=== PATIENT | male | born 1975 | race Caucasian/White ===

== ENCOUNTER 2018-06-18 12:01 | Emergency (ER) | payer OTHER ==
[2018-06-18 12:06] VITALS: BP 140/94; PULSE 70; TEMP 98; BMI 28.8
--- NOTE | 2018-06-18 12:55 | PDOC ---
History of Present Illness - General Chief Complaint: Pain Stated Complaint: RT SHOULDER PAIN Time Seen by Provider: 06/18/18 12:44 - History of Present Illness Initial Comments: 06/18/18 12:51 43-year-old male with a history of reflux presents for evaluation of right shoulder pain after a traction type injury. He states he was climbing the ladder slipped off one of the steps and held on with his right upper extremity. Naprosyn planes of right shoulder pain. This happened earlier today. Past History - Past Medical History Allergies/Adverse Reactions: Allergies Allergy/AdvReac Type Severity Reaction Status Date / Time No Known Allergies Allergy Verified 06/18/18 12:03 Home Medications: Ambulatory Orders NK [No Known Home Medication] 01/05/15 COPD: No - Immunization History Immunization Up to Date: Yes - Suicide/Smoking/Psychosocial Hx Smoking Status: No Smoking History: Never smoked Number of Cigarettes Smoked Daily: 0 Hx Alcohol Use: No Drug/Substance Use Hx: No Review of Systems - Review of Systems Musculoskeletal: Yes: Joint Pain *Physical Exam - Vital Signs Last Vital Signs Temp Pulse Resp BP Pulse Ox 98.0 F 70 18 140/94 97 06/18/18 12:04 06/18/18 12:04 06/18/18 12:04 06/18/18 12:04 06/18/18 12:04 - Physical Exam Comments: 06/18/18 12:52 Right shoulder range of motion is full with mild discomfort at terminal abduction and external rotation internal rotation and adduction. 5 out of 5 strength in bilateral upper extremities including supraspinatus isolation. Mildly positive speeds and O'Neal status for the right shoulder. No tenderness over the biceps tendon. Negative Spurling maneuver no gross sensorimotor deficits. Is neurovascularly intact. Moderate Sedation - Procedure Monitoring Vital Signs: Procedure Monitoring Vital Signs Temperature 98.0 F 06/18/18 12:04 Pulse Rate 70 06/18/18 12:04 Respiratory Rate 18 06/18/18 12:04 Blood Pressure 140/94 06/18/18 12:04 O2 Sat by Pulse Oximetry (%) 97 06/18/18 12:04 Medical Decision Making - Medical Decision Making 06/18/18 12:53 I believe this of mild right shoulder strain. I'll give him a week off work and orthopedic follow-up with instructions to return to the emergency room should symptoms worsen. He does have a history of reflux and instructed him to avoid anti-inflammatories and stick with Tylenol for pain as directed for now. *DC/Admit/Observation/Transfer Diagnosis at time of Disposition: Right shoulder strain - Discharge Dispostion Disposition: HOME Condition at time of disposition: Stable Decision to Admit order: No - Referrals Referrals: Samir Page DO [Staff Physician] - - Patient Instructions Printed Discharge Instructions: DI for Muscle Strain Additional Instructions: Return to the emergency room for worsening symptoms. Please follow-up with orthopedic surgery in 1-2 days for further evaluation and treatment options. Tylenol as directed for pain. Avoid anti-inflammatories as discussed. - Post Discharge Activity Forms/Work/School Notes: Back to Work
== END 2018-06-18 12:58 | disposition home or self-care (01) ==
LOC: JERFT 12:01
DX: S46.811A Strain of other muscles, fascia and tendons at shoulder and upper arm level, right arm, initial encounter (principal); W11.XXXA Fall on and from ladder, initial encounter; Y93.89 Activity, other specified; Y92.89 Other specified places as the place of occurrence of the external cause; Y99.0 Civilian activity done for income or pay
CPT/HCPCS: 99281-25

== ENCOUNTER 2019-06-22 08:17 | Emergency (ER) | payer OTHER ==
[2019-06-22 08:22] VITALS: BP 117/73; PULSE 78; TEMP 97.9; BMI 29.0
[2019-06-22] MEDS ORDERED: KETOROLAC TROMETHAMINE 60 MG/2 ML VIAL IM ONE (09:00)
[2019-06-22] MEDS ORDERED: KETOROLAC TROMETHAMINE 30 MG/1 ML VIAL ONE (09:02)
--- NOTE | 2019-06-22 09:10 | PDOC ---
History of Present Illness - General Chief Complaint: Injury Stated Complaint: PAIN Time Seen by Provider: 06/22/19 08:37 History Source: Patient - History of Present Illness Occurred: reports: yesterday Severity: reports: moderate Upper Extremity Pain Location: left: shoulder Past History - Past Medical History Allergies/Adverse Reactions: Allergies Allergy/AdvReac Type Severity Reaction Status Date / Time No Known Allergies Allergy Verified 06/18/18 12:03 Home Medications: Ambulatory Orders Naproxen 500 mg PO BID #14 tablet 06/22/19 COPD: No - Immunization History Immunization Up to Date: Yes - Psycho Social/Smoking Cessation Hx Smoking Status: No Smoking History: Never smoked Number of Cigarettes Smoked Daily: 0 Hx Alcohol Use: No Drug/Substance Use Hx: No Review of Systems - Review of Systems Musculoskeletal: Yes: Joint Pain. No: Joint Swelling Neurological: No: Numbness, Tingling, Weakness *Physical Exam - Vital Signs Last Vital Signs Temp Pulse Resp BP Pulse Ox 97.9 F 78 16 117/73 06/22/19 08:20 06/22/19 08:20 06/22/19 08:20 06/22/19 08:20 - Physical Exam General Appearance: Yes: Appropriately Dressed, Mild Distress HEENT: positive: Normal Voice Neck: positive: Supple Respiratory/Chest: negative: Respiratory Distress Extremity: positive: Normal Inspection, Tender (inferior to distal L clavicle w/ LROM to G-H joint 2/2 pain, UE strength 5/5 b/l) Integumentary: positive: Dry, Warm Neurologic: positive: Fully Oriented, Alert, Normal Mood/Affect, Motor Strength 5/5 Medical Decision Making - Medical Decision Making 06/22/19 09:20 44-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 Has had worsening pain since with difficulty putting his shirt on this a.m. No sensory changes or upper extremity weakness. Has not taken anything for pain see exam L shoulder strain No fall Exam remarkable for localized tenderness just inferior to the distal clavicle, no deformity, with intact upper strength bilaterally w/ LROM 2/2 pain -dose of toradol in ED and sling given -Dc w/ NSAID, cryotherapy and to f/u with pt's own orthopedist Discharge - Discharge Information Problems reviewed: Yes Clinical Impression/Diagnosis: Shoulder strain Qualifiers: Encounter type: initial encounter Laterality: left Qualified Code(s): S46.912A - Strain of unspecified muscle, fascia and tendon at shoulder and upper arm level, left arm, initial encounter Condition: Good Disposition: HOME - Additional Discharge Information Prescriptions: Naproxen 500 mg PO BID #14 tablet - Follow up/Referral - Patient Discharge Instructions Patient Printed Discharge Instructions: Shoulder Sprain Additional Instructions: Take medication as directed and apply ice to area frequently If pain persist after 2 weeks, please follow-up with your orthopedic doctor - Post Discharge Activity Work/Back to School Note: Back to Work
== END 2019-06-22 09:18 | disposition home or self-care (01) ==
LOC: JERFT 08:17
PROC: 3E0233Z Introduction of Anti-inflammatory into Muscle, Percutaneous Approach (ICD-10-PCS; principal; 2019-06-22)
DX: S46.812A Strain of other muscles, fascia and tendons at shoulder and upper arm level, left arm, initial encounter (principal); X50.9XXA Other and unspecified overexertion or strenuous movements or postures, initial encounter; Y93.89 Activity, other specified; Y92.89 Other specified places as the place of occurrence of the external cause; Y99.0 Civilian activity done for income or pay
CPT/HCPCS: 99284-25